=== PATIENT | male | born 1935 | race Caucasian/White ===

== ENCOUNTER 2017-05-17 11:19 | Day surgery (SDC) | payer MEDICARE, MEDICAID ==
[2017-05-17 11:48] VITALS: BMI 29.2
[2017-05-17 12:37] LABS: INR 1.1; PROTHROMBIN TIME 12.5 SECONDS (9.7-12.2)
--- NOTE | 2017-05-17 12:59 | RAD ---
HISTORY: OR 05-17-17 COMPARISON: Comparison chest 10/23/2013 TECHNIQUE: Chest PA and lateral FINDINGS: LUNGS: Poor inspiration with low lung volumes, minor crowded bronchovascular markings and mild bibasilar atelectasis. PLEURA: No significant pleural effusion identified. No pneumothorax apparent. CARDIOVASCULAR: Heart appears borderline/ mildly enlarged OSSEOUS STRUCTURES: Degenerative changes both shoulder girdles right greater than left. VISUALIZED UPPER ABDOMEN: Normal. OTHER FINDINGS: None. IMPRESSION: Poor inspiration with low lung volumes, minor crowded bronchovascular markings and mild bibasilar atelectasis.
[2017-05-17] MEDS: cefTRIAXone IV 1 gm in Dextros 50 ML IVPB ONE ×2 (14:23→14:50)
[2017-05-17] MEDS ORDERED: Lactated Ringer's 1,000 ML IV ONE ×2 (14:23)
[2017-05-17] MEDS: Lidocaine 2% Jelly (Uro-Jet) ONE ×2 (14:29→14:48)
[2017-05-17] MEDS ORDERED: Midazolam 2 MG/2 ML VIAL ONE (14:30)
[2017-05-17] MEDS ORDERED: Propofol 10 mg/ml Inj (20 ML) ONE (14:36)
[2017-05-17] MEDS ORDERED: Oxycodone/Acetaminophen 5/325 mg Tab PO PRN (15:13)
[2017-05-17] MEDS ORDERED: HYDROmorphone 0.5 mg/0.5 ml ISec IVP PRN (15:18)
[2017-05-17] MEDS ORDERED: Lactated Ringer's 1,000 ML IV SCH (15:30)
[2017-05-17] MEDS ORDERED: Gentamicin 80 mg in 0.9% NS 80 MG/100 ML BAG IVPB ONE (15:53)
[2017-05-17 18:19] VITALS: RESP 18
[2017-05-17 18:21] VITALS: BP 142/80; PULSE 62; TEMP 98.2; O2SAT 99
--- NOTE | 2017-05-19 14:10 | CARD ---
APPROVED REPORT EKG Measurement Heart [id number] <Conclusion> Marked sinus bradycardia Low voltage QRS Septal infarct, age undetermined Abnormal ECG
--- NOTE | 2017-06-15 08:59 | OP ---
DATEL: 05/17/2017 PREOPERATIVE DIAGNOSES: Elevated prostate-specific antigen, voiding dysfunction, decreased flow stream, nocturia. POSTOPERATIVE DIAGNOSES: Elevated prostate-specific antigen, voiding dysfunction, decreased flow stream, nocturia. PROCEDURE: Ultrasound of the prostate and a transrectal ultrasound-guided prostate biopsy. SURGEON: Tom Bolden MD ESTIMATED BLOOD LOSS: Less than 10 mL. COMPLICATIONS: There were no complications. SPECIMEN: Prostate cores. INDICATIONS: See the history and physical for further details. A pleasant gentleman here for the above procedure. Elevated PSA. We discussed risks, benefits, and treatment alternatives. DESCRIPTION OF PROCEDURE: The procedure continues as follow. The patient was brought to the OR, placed on the table. Routine monitors and time outs were called to confirm the patient's positioning. Antibiotic prophylaxis were given. The patient was placed on the decubitus position. Time-out was called to confirm the patient, positioning, etc. Probe inserted via the rectum, we used a BK 7.5 MHz probe. Took pictures in a transverse and longitudinal views. Prostate volume measured . There was no specific hypoechoic lesions. No real abnormality . We now began our routine random biopsies in the respective left base, left mid, left apex, right base, right mid, right apex, and we did do 2 cores at each right and left, 12 cores. Post biopsy, rectal exam was within normal limits. The patient tolerated this procedure without complications. Tom Bolden MD
== END 2017-05-17 17:15 | disposition home or self-care (01) ==
LOC: C.SDS 11:19
PROVIDERS: ATTEND Urology
DX: C61 Malignant neoplasm of prostate (principal); R35.1 Nocturia
CPT/HCPCS: 36415; 55700; 71020; 82948; 85610; 85730; 88305; 88342; 93005; J0696; J1580; J7120

== ENCOUNTER 2018-04-17 15:57 | Emergency (ER) | payer MEDICARE, MEDICAID ==
[2018-04-17 15:58] VITALS: BMI 29.2
[2018-04-17 16:18] VITALS: RESP 20
--- NOTE | 2018-04-17 18:23 | C.PDOC ---
History Of Present Illness 82-year-old male presents to the emergency department for evaluation after a mechanical fall. He states yesterday evening when he was going into his home, he could not get his robert out of the lock and when he pulled back, he fell backwards and hit his head on concrete ground. Patient denies loss of consciousness, headache, dizziness, nausea or vomiting, neck pain. Pt is currently complaining of pain to the left shoulder and left second digit. Time Seen by Provider: 04/17/18 17:16 Chief Complaint (Nursing): Back Pain History Per: Patient History/Exam Limitations: no limitations Onset/Duration Of Symptoms: Days (yesterday ) Quality Of Discomfort: "Pain" Severity: Mild Associated Symptoms: denies: Incontinence, New Weakness, New Numbness Past Medical History Reviewed: Historical Data, Nursing Documentation, Vital Signs Vital Signs: Last Vital Signs Temp 98.1 F 04/17/18 19:15 Pulse 88 04/17/18 19:15 Resp 20 04/17/18 19:15 BP 130/86 04/17/18 19:15 Pulse Ox 100 04/18/18 18:02 - Medical History PMH: Fractures (LEFT ARM/CHILDHOOD), HTN, Hypercholesterolemia, Hypothyroidism Surgical History: Coronary Stent (X1) Family History: States: No Known Family Hx - Social History Hx Alcohol Use: No Hx Substance Use: No - Immunization History Hx Influenza Vaccination: Yes Review Of Systems Constitutional: Negative for: Fever, Chills Cardiovascular: Negative for: Chest Pain, Palpitations Respiratory: Negative for: Shortness of Breath Gastrointestinal: Negative for: Nausea, Vomiting, Abdominal Pain Musculoskeletal: Positive for: Other (Left shoulder pain.) Neurological: Negative for: Weakness, Numbness, Incoordination, Change in Speech , Confusion, Seizures, Headache, Dizziness Physical Exam - Physical Exam Appears: Well, Non-toxic, No Acute Distress Skin: Normal Color, Warm, Dry, No Rash Head: Atraumatic, Normacephalic Eye(s): bilateral: Normal Inspection, PERRL, EOMI Oral Mucosa: Moist Neck: Normal, Normal ROM, No Midline Cervical Tenderness, No Paracervical Tenderness, No Step Off Deformity, Supple Cardiovascular: Rhythm Regular Respiratory: Normal Breath Sounds, No Accessory Muscle Use, No Rales, No Rhonchi , No Wheezing Gastrointestinal/Abdominal: Normal Exam, Bowel Sounds, Soft, No Tenderness Extremity: Normal ROM, Capillary Refill (< 2 sec all digits ), No Deformity, Other (Left shoulder: mild tenderness to palpation at the posterior aspect of the shoulder, above the scapula. ROM intact. Upper extremity: right second digit is tender to palpation at the distal aspect. No swelling or deformity. ) Pulses: Left Radial: Normal, Right Radial: Normal Neurological/Psych: Oriented x3, Normal Speech, Normal Cognition, Normal Cranial Nerves, No Cerebellar Signs, Normal Motor, Normal Sensation Gait: Steady ED Course And Treatment O2 Sat by Pulse Oximetry: 100 (RA) Pulse Ox Interpretation: Normal - Other Rad left hand Xray X-Ray: Interpreted by Me, Viewed By Me (no fx/dislocation, (+) arthritic changes ) hips/pelvis xray X-Ray: Interpreted by Me, Viewed By Me (no fx/dislocations, (+) arthritic changes) left shoulder xray X-Ray: Interpreted by Me, Viewed By Me (no fx/dislocation) - CT Scan/US CT HEAD Other Rad Studies (CT/US): Read By Radiologist, Radiology Report Reviewed CT/US Interpretation: Accession No. : [id number]. Patient Name / ID : HOLLEY Dwyer / [id number]. Exam Date : 04/17/2018 18:12:39 ( Approved ). Study Comment : Sex / Age : M / 82Y. Creator : wilman holcomb. Dictator : Barry Berry MD. Tube Rebuilder : Carpenters Supervisor : Barry Berry MD. Approver2 : Report Date : 04/17/2018 18:19:59. My Comment : . PROCEDURE: CT HEAD WITHOUT CONTRAST. HISTORY: head injury s/p fall. COMPARISON: None available. TECHNIQUE: Axial computed tomography images were obtained through the head/brain without intravenous contrast. Radiation dose: Total exam DLP = 825 mGy-cm. This CT exam was performed using one or more of the following dose reduction techniques: Automated exposure control, adjustment of the mA and/or kV according to patient size, and/or use of iterative reconstruction technique. FINDINGS: HEMORRHAGE: No intracranial hemorrhage. BRAIN: No mass effect or edema. Scattered focal lucencies in the subcortical and periventricular white matter suggestive for chronic microvascular ischemic change. Benign bilateral globus pallidus calcifications. Mild cerebral volume loss. VENTRICLES: Unremarkable. No hydrocephalus. CALVARIUM: Unremarkable. PARANASAL SINUSES: Unremarkable as visualized. No significant inflammatory changes. MASTOID AIR CELLS: Unremarkable as visualized. No inflammatory changes. OTHER FINDINGS: None. IMPRESSION: No acute intracranial abnormality. Chronic microvascular ischemic change. If symptoms persists, consider correlation with MRI. These findings were preliminarily reported at 6: 57 p.m. on 04/17/[address] Lisandro Torrse from [facility] Progress Note: CT Head, XRays of left hand, left hips/pelvis and left shoulder ordered and reviewed. Patient given PO Tylenol. Reevaluation Time: 19:10 Reassessment Condition: Improved (On reassessment, patient is resting comfortably and states he feels better. He is ambulating normally in the ED. Imaging was negative for acute injuries. Patient given Rx for tylenol, and was instructed to follow up with PMD/clinic in 1-2 days. He understands he should return to ED if he has any concerning symptoms.) Disposition Counseled Patient/Family Regarding: Studies Performed, Diagnosis, Need For Followup, Rx Given - Disposition Referrals: Ashish Kumari MD [Staff Provider] - Rios Yanes III, MD [Staff Provider] - [facility] [place] [Outside] Disposition: HOME/ ROUTINE Disposition Time: 19:10 Condition: STABLE Prescriptions: Acetaminophen [Tylenol 325mg tab] 650 mg PO Q6 PRN #30 tab PRN Reason: pain/fever Instructions: Shoulder Sprain, Closed Head Injury (DC), Finger Sprain (DC) Forms: [facility] (Azerbaijani) Print Language: MACANESE - POA Present On Arrival: Falls Or Trauma - Clinical Impression Clinical Impression: Sprain of shoulder, left, Closed head injury, Sprain of finger, left - Scribe Statement The provider has reviewed the documentation as recorded by the Scribe (Alyssa Valentine) All medical record entries made by the Scribe were at my direction and personally dictated by me. I have reviewed the chart and agree that the record accurately reflects my personal performance of the history, physical exam, medical decision making, and the department course for this patient. I have also personally directed, reviewed, and agree with the discharge instructions and disposition.
[2018-04-17 20:19] VITALS: BP 130/86; PULSE 88; TEMP 98.1
--- NOTE | 2018-04-18 08:28 | RAD ---
PROCEDURE: Radiographs of the pelvis and bilateral hips HISTORY: Pain after fall COMPARISON: None. FINDINGS: BONES: The pelvic ring is intact. There is no acute displaced fracture or bone destruction. JOINTS: The hip joint spaces are preserved. Both sacroiliac joints are preserved. There is mild osteitis pubis. SOFT TISSUES: Normal. OTHER FINDINGS: None. IMPRESSION: No acute displaced fracture or dislocation. Please note occult fractures cannot be excluded on plain radiographs. If there is a persistent clinical concern, an MRI of the hip may be performed for further evaluation.
--- NOTE | 2018-04-18 08:30 | RAD ---
PROCEDURE: Radiographs of the Left Shoulder HISTORY: let shoulder pain after fall COMPARISON: No prior. FINDINGS: BONES: Bone alignment and mineralization are normal. There is no acute displaced fracture or bone destruction. 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 The acromioclavicular joint is normal. SOFT TISSUES: Normal. OTHER FINDINGS: None. IMPRESSION: No acute displaced fracture or dislocation.
--- NOTE | 2018-04-18 08:31 | RAD ---
PROCEDURE: Left Index finger radiographs. HISTORY: left digit pain after fall COMPARISON: None. TECHNIQUE: AP radiograph of the left hand, as well as spot oblique and lateral images of index finger were obtained. FINDINGS: LEFT INDEX FINGER: Normal left index finger, without acute fracture or focal lesion. Remainder of the left hand (as seen on the AP view) grossly intact. 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 There is also moderate degenerative osteoarthrosis in the proximal interphalangeal joint of the 5th digit. SOFT TISSUES: Normal. OTHER FINDINGS: None. IMPRESSION: No acute displaced fracture or dislocation.
--- NOTE | 2018-04-18 08:35 | CT ---
PROCEDURE: CT HEAD WITHOUT CONTRAST. HISTORY: head injury s/p fall COMPARISON: None available. TECHNIQUE: Axial computed tomography images were obtained through the head/brain without intravenous contrast. Radiation dose: Total exam DLP = 825 mGy-cm. This CT exam was performed using one or more of the following dose reduction techniques: Automated exposure control, adjustment of the mA and/or kV according to patient size, and/or use of iterative reconstruction technique. FINDINGS: HEMORRHAGE: No intracranial hemorrhage. BRAIN: No mass effect or edema. Scattered focal lucencies in the subcortical and periventricular white matter suggestive for chronic microvascular ischemic change. Benign bilateral globus pallidus calcifications. Mild cerebral volume loss. VENTRICLES: Unremarkable. No hydrocephalus. CALVARIUM: Unremarkable. PARANASAL SINUSES: Unremarkable as visualized. No significant inflammatory changes. MASTOID AIR CELLS: Unremarkable as visualized. No inflammatory changes. OTHER FINDINGS: None. IMPRESSION: No acute intracranial abnormality. Chronic microvascular ischemic change. If symptoms persists, consider correlation with MRI. These findings were preliminarily reported at 6:57 p.m. on 04/17/[address] Lisandro Torres from [facility]
[2018-04-18 17:58] VITALS: O2SAT 100
== END 2018-04-17 19:15 | disposition home or self-care (01) ==
LOC: C.ER 15:57
DX: S09.90XA Unspecified injury of head, initial encounter (principal); S43.402A Unspecified sprain of left shoulder joint, initial encounter; S63.611A Unspecified sprain of left index finger, initial encounter; W18.39XA Other fall on same level, initial encounter; Y92.008 Other place in unspecified non-institutional (private) residence as the place of occurrence of the external cause